=== PATIENT | female | born 1975 | race Hispanic/Latino ===

== ENCOUNTER → 2018-05-25 | Outpatient (CLI) | payer OTHER ==
[~2018-05-25] MED LIST: ATORVASTATIN CA10 MG PO; CEFTIN500 MG PO; DIFLUCAN100 MG PO; DITROPAN XL10 MG PO; FERREX 150 FOR1 EACH PO; FLUCONAZOLE100 MG PO; GLIMEPIRIDE1 MG PO; GLIMEPIRIDE2 MG PO; LISINOPRIL10 MG PO; METFORMIN HCL1000 MG PO; METFORMIN HCL500 MG PO; METFORMIN HCL850 MG PO; ULTRACET TABLE1 EACH PO
--- NOTE | 2018-05-25 17:43 | Diagnostic Imaging Report ---
EXAM: Abdomen 2 Views INDICATION: ^[id number] ^1335 ^CALCULUS OF KIDNEY COMPARISON: 01/29/2018 FINDINGS: Limited by body habitus. Nonobstructive bowel gas pattern. No signs of pneumoperitoneum. Not significantly changed right renal midpole calculus. Stable right nephroureteral stent in place. Subcentimeter pelvic calcification, closely abutting the distal right nephroureteral stent, unchanged. No acute osseous abnormality. IMPRESSION: No significant interval change from KUB dated 01/29/2018. Signed by: Dr. Cesar Mcdermott MD on 05/25/2018 5:40 PM
== END ==
LOC: RAD 12:51
PROVIDERS: ATTEND Urology
DX: N20.0 Calculus of kidney (principal)
CPT/HCPCS: 74018

== ENCOUNTER → 2018-06-07 | Day surgery (SDC) | payer OTHER ==
[2018-06-05 17:16] LABS: BASOPHILS % 0.4 % (0.0-1.0); EOSINOPHILS # (AUTO) 0.4 (0.0-0.4); EOSINOPHILS % 4.4 % (0.0-6.0); HEMATOCRIT 38.2 % (34.2-44.1); HEMOGLOBIN 11.6 g/dL (12.0-16.0); LYMPHOCYTES # (AUTO) 2.2 (1.0-3.2); LYMPHOCYTES % 23.5 % (18.0-39.1); MEAN CORPUSCULAR HEMOGLOBIN 23.6 pg (28-32); MEAN CORPUSCULAR HGB CONC 30.4 g/dL (31-35); MEAN CORPUSCULAR VOLUME 77.6 fL (81-99); MONOCYTES # (AUTO) 0.7 (0.2-0.8); MONOCYTES % 7.2 % (4.4-11.3); NEUTROPHILS # (AUTO) 6.1 (2.1-6.9); NEUTROPHILS % 64.3 % (38.7-80.0); PLATELET COUNT 250 x10e3/uL (140-360); RED BLOOD COUNT 4.92 x10e6/uL (3.6-5.1); RED CELL DISTRIBUTION WIDTH 19.8 % (11.7-14.4)
[~2018-06-07] MED LIST changes: +CEFAZOLIN SOD 1 GM/D5W 50ML 50 ML IV ONE; +CLINDAMYCIN 300MG 50 ML IV ONE; +DEXAMETHASONE SOD PHOS INJ 4 MG/ML VIAL ONE; +FARXIGA; +FENTANYL CITRATE/PF 100MCG/2 ML INJ ONE; +IOPAMIDOL 610MG/1ML 300 MG/ML VIAL IV ONE; +LIDOCAINE HCL 2% LOCAL INJ 5 ML SDV VIAL INJ ONE; +MIDAZOLAM HCL 2 MG/2 ML VIAL ONE; +ONDANSETRON HCL INJ 2MG/ML 2ML 2 MG/ML VIAL ONE; +PROPOFOL IV EMULSION 10 MG/ML 20 ML VIAL ONE; +SEVOFLURANE INHAL SOLN 250 ML PEN BTL ONE; +TRADJENTA5 MG
--- OUTSIDE RECORDS SUMMARY | 2018-06-07 07:49 | XMS REPORT ---
Author Author [facility] Address Unknown Phone Unavailable Care Team Providers Care Court Deputy Name Role Phone DANIEL MO Unavailable Unavailable Problems This patient has no known problems. Allergies, Adverse Reactions, Alerts This patient has no known allergies or adverse reactions. Medications This patient has no known medications. Results Test Description Test Time Test Comments Text Results Atomic Results Result Comments ABDOMEN-1VIEW ([facility]) 2018-05-25 17:37:00 [place] [address] Patient Name: FAUSTO ANGEL MR #: [id number] : 1975 Age/Sex: 43/F Req #: [id number] Adm Physician: Ordered by: DANIEL MO MD Report #: [id number] Location: [facility] Room/Bed: Procedure: [id number] DX/ABDOMEN-1VIEW (KU) Exam Date: 05/25/18 Exam Time: 1335 REPORT STATUS: Signed EXAM: Abdomen 2 Views INDICATION: [id number] CALCULUS OF KIDNEY COMPARISON: 01/29/2018 FINDINGS: Limited by body habitus. Nonobstructive bowel gas pattern. No signs of pneumoperitoneum. Not significantly changed right renal midpole calculus. Stable right nephroureteral stent in place. Subcentimeter pelvic calcification, closely abutting the distal right nephroureteral stent, unchanged. No acute osseous abnormality. IMPRESSION: No significant interval change from KUB dated 01/29/2018. Signed by: Dr. Cesar Mcdermott MD on 05/25/2018 5:40 PM Dictated By: CESAR MCDERMOTT MD 39 Transcribed By: GRAEME on 05/25/181739 COPY TO: DANIEL MO MD ABDOMEN-1VIEW (KUB) 2018-01-29 17:34:00 [place] [address] Patient Name: FAUSTO ANGEL MR #: [id number] : 1975 Age/Sex: 42/F Req #: [id number] Adm Physician: Ordered by: DANIEL MO MD Report #: [id number] Location: [facility] Room/Bed: Procedure: [id number] DX/ABDOMEN-1VIEW (KU) Exam Date: 01/29/18 Exam Time: 1657 REPORT STATUS: Signed ABDOMEN-1VIEW (KU) - 3 views HISTORY: Pain. History of a stent. COMPARISON: CT dated 07/10/2015 FINDINGS: Limited by body habitus. Nonobstructive bowel gas pattern. No signs of pneumoperitoneum. Questionable faint calcification overlying right renal midpole measuring 1.1 cm. There is a right nephroureteral stent in place. The proximal tip is either within extra renal pelvis or proximal right ureter. The distal tip overlies the expected location of bladder. Pelvic calcification, closely abutting the distal right nephroureteral stent. No acute osseous abnormality. IMPRESSION: Right nephroureteral stent in place. The proximal tip is either within extrarenal pelvis or proximal right ureter. The distal tip overlies the expected location of bladder. Questionable 1.1 cm right renal calculus. Pelvic calcification, closely abutting the distal right nephroureteral stent, could represent a phlebolith or distal right ureteral calculus. If clinically indicated, renal stone protocol CT can be obtained for better evaluation. Signed by: Dr. Cesar Mcdermott MD on 01/29/2018 5:41 PM Dictated By: CESAR MCDERMOTT MD 40 Tra nscribed By: GRAEME on 01/29/181740 COPY TO: DANIEL MO MD
[2018-06-07 11:35] VITALS: BP 120/65
--- NOTE | 2018-06-07 13:30 | Operative Report ---
DATE OF PROCEDURE: June 07, 2018 SERVICE: Urology. PREOPERATIVE DIAGNOSES 1. Right hydronephrosis. 2. Bladder stone. 3. Stent on the right side. 4. History of right nephrolithiasis. 5. Urinary tract infections in the past. POSTOPERATIVE DIAGNOSES 1. Right hydronephrosis. 2. Bladder stone. 3. Stent on the right side. 4. History of right nephrolithiasis. 5. Urinary tract infections in the past. OPERATIONS PERFORMED: 1. Cystoscopy and laser fragmentation of bladder stone about 2 cm in size. 1. Left retrograde pyelograms under fluoroscopic control. This was done not related to the other side, for further evaluation of the urinary tract infection. 2. Removal of double-J stent from the right side. 3. Right retrograde pyelograms under fluoroscopic control. 4. Right ureteroscopy. 5. Placement of double-J stent 6-Portuguese 24-cm-long to the right side. 6. Interpretation of x-ray. Radiologist not present. 7. Supervision of fluoroscopy. Radiologist not present. DIRECTOR OF HEALTH EDUCATION: None. ANESTHESIA: General. CLINICAL INDICATION NOTE: This is a 43-year-old patient that had stones in the right side. She has a stent in place. She was brought for reassessment of both sides and possible fragmentation of a stone in the kidney found. Procedure was discussed with the patient. Potential benefits and complications discussed, explained and accepted. DESCRIPTION OF PROCEDURE AND FINDINGS: After a proper level of anesthesia was achieved, the patient was placed in lithotomy position, prepped and draped in sterile fashion. Urethra inspected, is unremarkable. The outlet is normal. Bladder mucosa demonstrates some inflammatory changes to the stones. Some of them were attached to the stent. They were fragmented with a laser, and the fragments were removed. Following this, open-end catheter was inserted to the left side and retrograde pyelogram demonstrating a normal left collecting system. No hydronephrosis, no stones. Following this, the open-end catheter was inserted by the present stent on the right side. The stent was then removed and retrograde pyelogram demonstrating some dilation and hydronephrosis on the right side. Question of UPJ obstruction as well. Following this, a guidewire was passed up and a flexible ureteroscopy was done. No stones were identified along the ureter. UPJ junction was somewhat narrow. The pelvis was then examined. It was dilated and had some cloudy material, but no definitive stone could be identified. The wire was kept in place, and a 6-Portuguese 24-cm-long double J-stent was properly positioned in the right side. This was verified by x-ray and endoscopy. Bladder was then irrigated, and the patient was transferred in satisfactory condition to the recovery room. Job#: [id number]
== END | disposition home or self-care (01) ==
LOC: OR 07:47
PROVIDERS: ATTEND Urology
DX: N13.30 Unspecified hydronephrosis (principal); N21.0 Calculus in bladder; Z46.6 Encounter for fitting and adjustment of urinary device; Z87.442 Personal history of urinary calculi; Z87.440 Personal history of urinary (tract) infections; E11.9 Type 2 diabetes mellitus without complications; I10 Essential (primary) hypertension; R49.0 Dysphonia; E66.01 Morbid (severe) obesity due to excess calories; Z01.810 Encounter for preprocedural cardiovascular examination; Z01.812 Encounter for preprocedural laboratory examination; Z79.84 Long term (current) use of oral hypoglycemic drugs
CPT/HCPCS: 36415 ×2; 52317; 52332; 52351; 74420; 81025; 82948; 85025; 88300; 93005; C2617; J0690; J1100; J2001; J2250; J2405; J2704; Q9967

== ENCOUNTER → 2019-02-11 | Outpatient (CLI) | payer OTHER ==
[~2019-02-11] MED LIST changes: -CEFAZOLIN SOD 1 GM/D5W 50ML 50 ML IV ONE; -CLINDAMYCIN 300MG 50 ML IV ONE; -DEXAMETHASONE SOD PHOS INJ 4 MG/ML VIAL ONE; -FENTANYL CITRATE/PF 100MCG/2 ML INJ ONE; -IOPAMIDOL 610MG/1ML 300 MG/ML VIAL IV ONE; -LIDOCAINE HCL 2% LOCAL INJ 5 ML SDV VIAL INJ ONE; -MIDAZOLAM HCL 2 MG/2 ML VIAL ONE; -ONDANSETRON HCL INJ 2MG/ML 2ML 2 MG/ML VIAL ONE; -PROPOFOL IV EMULSION 10 MG/ML 20 ML VIAL ONE; -SEVOFLURANE INHAL SOLN 250 ML PEN BTL ONE
--- NOTE | 2019-02-11 16:56 | Diagnostic Imaging Report ---
EXAM: Renal Ultrasound INDICATION: Hydronephrosis COMPARISON: CT abdomen pelvis of 06/29/2015 TECHNIQUE: Transverse and longitudinal images of the kidneys and bladder were obtained. FINDINGS: Image quality is degraded by patient body habitus. Right Kidney: Length: 11.2 cm Appearance: Normal echogenicity. Collecting system: No hydronephrosis Stones: None Cyst/Mass: None Left Kidney: Length: 11.4 cm Appearance: Normal echogenicity. Collecting system: No hydronephrosis Stones: None Cyst/Mass: None Bladder: No mass or calculi. Bilateral ureteral jets seen. Prevoid volume estimate of 112.1 cc. IMPRESSION: No renal calculi or hydronephrosis. Signed by: Jose Knight MD on 02/11/2019 4:52 PM
--- NOTE | 2019-02-11 17:21 | Diagnostic Imaging Report ---
Exam: KUB - 2 views Indication: Renal calculi, back pain Comparison: KUB of 05/25/2018, renal ultrasound of earlier the same day Findings: No radiographically apparent renal calculi. Nonobstructive bowel gas pattern. The osseous structures appear unremarkable. No free air. Phleboliths within the pelvis. Impression: No radiographically apparent renal calculi. Signed by: Jose Knight MD on 02/11/2019 5:17 PM
== END ==
LOC: US 16:05
PROVIDERS: ATTEND Urology
DX: N20.0 Calculus of kidney (principal); N13.30 Unspecified hydronephrosis
CPT/HCPCS: 74018; 76770

== ENCOUNTER 2020-02-07 11:53 | Inpatient (IN) | payer OTHER ==
[~2020-02-07] VITALS: Ht 162.6 cm; Wt 144.2 kg
[2020-02-07] MEDS ORDERED: AZITHROMYCIN 500MG/NS 250 ML 250 ML IV STA (12:04)
[2020-02-07] MEDS ORDERED: CEFTRIAXONE SOD 1 GM/NS 50 ML 50 ML IV ONE (12:15)
[2020-02-07 12:20] LABS: BASOPHILS % 0.1 % (0.0-1.0); EOSINOPHILS # (AUTO) 0.1 (0.0-0.4); EOSINOPHILS % 1.7 % (0.0-6.0); HEMATOCRIT 39.3 % (34.2-44.1); HEMOGLOBIN 12.2 g/dL (12.0-16.0); LYMPHOCYTES # (AUTO) 1.7 (1.0-3.2); LYMPHOCYTES % 23.5 % (18.0-39.1); MEAN CORPUSCULAR VOLUME 86.9 fL (81-99); MONOCYTES # (AUTO) 0.6 (0.2-0.8); MONOCYTES % 7.8 % (4.4-11.3); NEUTROPHILS # (AUTO) 4.7 (2.1-6.9); NEUTROPHILS % 66.3 % (38.7-80.0); PLATELET COUNT 201 x10e3/uL (140-360); RED BLOOD COUNT 4.52 x10e6/uL (3.6-5.1); RED CELL DISTRIBUTION WIDTH 16.5 % (11.7-14.4)
[2020-02-07 12:37] LABS: ALANINE AMINOTRANSFERASE 28 IU/L (0-55); ALBUMIN/GLOBULIN RATIO 1.2 (0.8-2.0); ALKALINE PHOSPHATASE 108 IU/L (40-150); ANION GAP 14.6 mmol/L (8-16); BLOOD UREA NITROGEN 7 mg/dL (7-26); BUN/CREATININE RATIO 9 (6-25); CALCIUM 8.4 mg/dL (8.4-10.2); CARBON DIOXIDE 26 mmol/L (22-29); CHLORIDE 100 mmol/L (98-107); CREATINE KINASE 201 IU/L (29-168); CREATININE, SERUM 0.76 mg/dL (0.57-1.11); EST GLOMERULAR FILTRATION RATE > 60 ML/MIN (60-); GLUCOSE 179 mg/dL (74-118); POTASSIUM 3.6 mmol/L (3.5-5.1); SODIUM 137 mmol/L (136-145)
--- OUTSIDE RECORDS SUMMARY | 2020-02-07 12:55 | XMS REPORT | Continuity of Care Document ---
Author Author [facility] t Organization [facility] Address [address] [place] [address] Dr. [address]. [address] [place] [address] Phone Unavailable Care Team Providers Care Movie Writer Name Role Phone DANIEL MO Atttyson Unavailable Problems This patient has no known problems. Allergies, Adverse Reactions, Alerts This patient has no known allergies or adverse reactions. Medications This patient has no known medications. Procedures This patient has no known procedures. Results Test Description Test Time Test Comments Results Result Comments Source ABDOMEN-1VIEW ([facility]U) 2019-02-11 17:16:00 [place] [address] Patient Name: FAUSTO ANGEL MR #: [id number] : 1975 Age/Sex: 43/F Req #: [id number] Adm Physician: Ordered by: DANIEL MO MD Report #: [id number] Location: Room/Bed: Procedure: [id number] DX/ABDOMEN-1VIEW (KUB) Exam Date: 02/11/19 Exam Time: 1703 REPORT STATUS: Signed Exam: KUB - 2 views Indication: Renal calculi, back pain Comparison: KUB of 05/25/2018, renal ultrasound of earlier the same day Findings: No radiographically apparent renal calculi. Nonobstructive bowel gas pattern. The osseous structures appear unremarkable. No free air. Phleboliths within the pelvis. Impression: No radiographically apparent renal calculi. Signed by: Gabriela Knight MD on 02/11/2019 5:17 PM Dictated By: GABRIELA KNIGHT MD 16 Transcribed By: GRAEME on 02/11/191716 COPY TO: DANIEL MO MD RENAL RETROPERITONEAL COMP 2019-02-11 16:51:00 [place] [address] Patient Name: FAUSTO ANGEL MR #: [id number] : 1975 Age/Sex: 43/F Req #: [id number] Adm Physician: Ordered by: DANIEL MO MD Report #: [id number] Location: US Room/Bed: Procedure: [id number] US/US RENAL RETROPERITONEAL COMP Exam Date: 02/11/19 Exam Time: 1620 REPORT STATUS: Signed EXAM: Renal Ultrasound INDICATION: Hydronephrosis COMPARISON: CT abdomen pelvis of 06/29/2015 TECHNIQUE: Transverse and longitudinal images of the kidneys and bladder were obtained. FINDINGS: Image quality is degraded by patient body habitus. Right Kidney: Length: 11.2 cm Appearance: Normal echogenicity. Collecting system: No hydronephrosis Stones: None Cyst/Mass: None Left Kidney: Length: 11.4 cm Appearance: Normal echogenicity. Collecting system: No hydronephrosis Stones: None Cyst/Mass: None Bladder: No mass or calculi. Bilateral ureteral jets seen. Prevoid volume estimate of 112.1 cc. IMPRESSION: No renal calculi or hydronephrosis. Signed by: Gabriela Knight MD on 02/11/2019 4:52 PM Dictated By: GABRIELA KNIGHT MD 51 Transcribed By: GRAEME on 02/11/191651 COPY TO: DANIEL MO MD ABDOMEN-1VIEW ([facility]UB) 2018-05-25 17:37:00 [place] [address] Patient Name: FAUSTO ANGEL MR #: [id number] : 1975 Age/Sex: 43/F Req #: [id number] Adm Physician: Ordered by: DANIEL MO MD Report #: [id number] Location: [facility] Room/Bed: Procedure: [id number] DX/ABDOMEN-1VIEW (KU) Exam Date: 05/25/18 Exam Time: 1335 REPORT STATUS: Signed EXAM: Abdomen 2 Views INDICATION: [id number] CALCULUS OF KIDNEY COMPARISON: 01/29/2018 FINDINGS: Limited by body habitus. Nonobstructive bowel gas pattern. No signs of pneumoperitoneum. Not significantly changed right renal midpole calculus. Stable right nephroureteral stent in place. Subcentimeter pelvic calcification, closely abutting the distal right nephroureteral stent, unchanged. No acute osseous abnormality. IMPRESSION: No significant interval change from KUB dated 01/29/2018. Signed by: Dr. Cesar Baca MD on 05/25/2018 5:40 PM Dictated By: CESAR BACA MD 39 Transcribed By: GRAEME on 05/25/181739 COPY TO: DANIEL MO MD ABDOMEN-1VIEW (KUB) 2018-01-29 17:34:00 [place] [address] Patient Name: FAUSTO ANGEL MR #: [id number] : 1975 Age/Sex: 42/F Req #: [id number] Adm Physician: Ordered by: DANIEL MO MD Report #: [id number] Location: [facility] Room/Bed: Procedure: [id number] DX/ABDOMEN-1VIEW (KUB) Exam Date: 01/29/18 Exam Time: 1657 REPORT STATUS: Signed ABDOMEN-1VIEW (KUB) - 3 views HISTORY: Pain. History of [...] for better evaluation. Signed by: Dr. Cesar Baca MD on 01/29/2018 5:41 PM Dictated By: CESAR BACA MD 40 Tra nscribed By: GRAEME on 01/29/181740 COPY TO: DANIEL MO MD
--- NOTE | 2020-02-07 13:00 | Emergency Department Note ---
History of Present Illnes History of Present Illness Chief Complaint: COVID PUI History of Present Illness This is a 44 year old female arrives to the ED with complaints of cough fever chills. Patient's son test positive for Covid 19. . Chief Complaint Comment patient c/o shortness of breath and fever, pt states that she was tested on 01/25 but tested negative but symptoms did not start until the next day, productive cough and shortness of breath started after her last covid test, pt states that she has had a fever since 01/26 and her temperature will spike up if she does not take tylenol every 6-8 hrs, pt states that she has been taking tylenol since 01/26, last taken was 0630, pt appears to be short of breath when ambulating and needed to be placed on oxygen via nasal cannula upon arrival to the room, current O2 sat is 100% on 2L Historian: Patient Arrival Mode: Car Radiation: Reports non-radiation Severity: mild Duration (how long): day(s) Progression: worsening ( ) Chronicity: new Past Medical/Family History Physician Review I have reviewed the patient's past medical and family history. Any updates have been documented here. Past Medical History Recent Fever: Yes Clinical Suspicion of Infectio: No New/Unexplained Change in Ment: No Past Medical History: Hypertension, Diabetes, Hyperlipedemia Other Medical History: KIDNEY STONES Past Surgical History: Cholecysctectomy Other Surgery: LITHOTRIPSY Social History Smoking Cessation: Never Smoker Other Last Tetanus: NA Review of Systems Review of Systems Constitutional: Reports as per HPI, Reports fever, Reports malaise, Reports weakness EENTM: Reports no symptoms Cardiovascular: Reports no symptoms Respiratory: Reports as per HPI, Reports cough Gastrointestinal: Reports no symptoms Genitourinary: Reports no symptoms Musculoskeletal: Reports no symptoms Integumentary: Reports no symptoms Neurological: Reports no symptoms Psychological: Reports no symptoms Endocrine: Reports no symptoms Hematological/Lymphatic: Reports no symptoms Physical Exam Related Data Allergies: Coded Allergies: No Known Allergies (Unverified , 11/12/14) Triage Vital Signs Vital Signs Date Time Temp Pulse Resp B/P (MAP) Pulse Ox O2 Delivery O2 Flow Rate FiO2 02/07/20 12:00 101 24 162/74 99 Nasal Cannula 2.0 Vital signs reviewed: Yes Physical Exam CONSTITUTIONAL Constitutional: Present well-developed, Present well-nourished, Present morbidly obese HENT HENT: Present normocephalic, Present atraumatic, Present oropharynx clear/moist, Present nose normal HENT L/R: Present left ext ear normal, Present right ext ear normal EYES Eyes: Reports PERRL, Reports conjunctivae normal NECK Neck: Present ROM normal PULMONARY Pulmonary: Present effort normal, Present breath sounds normal CARDIOVASCULAR Cardiovascular: Present regular rhythm, Present heart sounds normal, Present capillary refill normal, Present normal rate GASTROINTESTINAL Abdominal: Present soft, Present nontender, Present bowel sounds normal GENITOURINARY Genitourinary: Present exam deferred SKIN Skin: Present warm, Present dry MUSCULOSKELETAL Musculoskeletal: Present ROM normal NEUROLOGICAL Neurological: Present alert, Present oriented x 3, Present no gross motor or sensory deficits PSYCHOLOGICAL Psychological: Present mood/affect normal, Present judgement normal Results Laboratory Laboratory Laboratory Tests Test 02/07/20 12:12 02/07/20 12:10 Bedside Glucose 187 mg/dL (70-120) Assessment & Plan Medical Decision Making MDM Clinical Impression and Disposition Plan My clinical impression includes: Covid 19 pneumonia No diagnosis found. And plan is admit for: -Further monitoring and evaluation is medically necessary -Failure to respond to outpatient treatment -Changes in pt's condition require medical attention -High risk for adverse event impacting life/organs/systems -Impossible to complete diagnostic studies as an outpatient -Signs/symptoms could lead to deterioration of patient -Treatment plan will require frequent clinical modifications -Treatment requires inpatient setting All clinical impressions and diagnoses provided are preliminary ED determinations subject to the inherent limitations of an emergent non-scheduled evaluation and possible lack of comprehensive previous records. All patient care including history taking, review of systems, physical exam, nursing notes review, medical decision making, clinical course management in the emergency department, clinical impression, disposition and plan formulation was performed on the date of service. This note was created using a voice-recognition transcribing system. Incorrect words or phrases may have been missed during proofreading. Please interpret accordingly. Assessment & Plan Final Impression: (1) COVID-19 Depart Disposition: ADMITTED Last Vital Signs Date Time Temp Pulse Resp B/P (MAP) Pulse Ox O2 Delivery O2 Flow Rate FiO2 02/07/20 12:00 101 24 162/74 99 Nasal Cannula 2.0 Home Meds Reported Medications Linagliptin (TRADJENTA) 5 Mg Tablet 06/05/18 [Farxiga] No Conflict Check 06/05/18 Metformin Hcl (METFORMIN HCL) 1,000 Mg Tablet, 1000 MG PO BID 01/02/17 Atorvastatin Calcium (ATORVASTATIN CALCIUM) 10 Mg Tablet, 10 MG PO HS, TAB 11/12/14 Lisinopril (LISINOPRIL) 10 Mg Tablet, 10 MG PO HS, TAB 11/12/14 Medications in the ED Ceftriaxone Sodium 50 ml @ 100 mls/hr ONCE ONCE IV ; Start 02/07/20 at 12:15; Stop 02/07/20 at 12:44 Azithromycin 250 ml @ 200 mls/hr NOW STAT IV ; Start 02/07/20 at 12:04; Stop 02/07/20 at 13:18 MARIA SERRATO DO Feb 07, 2020 13:00
--- OUTSIDE RECORDS SUMMARY | 2020-02-07 13:03 | XMS REPORT | Continuity of Care Document ---
Author Author [facility] t Organization [facility] Address [address] [place] [address] Dr. Smith. [address] [place] [address] Phone Unavailable Care Team Providers Care Physician Ophthalmologist Name Role Phone DANIEL MO Atttyson Unavailable Problems This patient has no known problems. Allergies, Adverse Reactions, Alerts This patient has no known allergies or adverse reactions. Medications This patient has no known medications. Procedures This patient has no known procedures. Results Test Description Test Time Test Comments Results Result Comments Source ABDOMEN-1VIEW ([facility]) 2019-02-11 17:16:00 [place] [address] Patient Name: FAUSTO ANGEL MR #: [id number] : 1975 Age/Sex: 43/F Req #: [id number] Adm Physician: Ordered by: DANIEL MO MD Report #: [id number] Location: Room/Bed: Procedure: [id number] DX/ABDOMEN-1VIEW (KUB) Exam Date: 02/11/19 Exam Time: [...] MO MD RENAL RETROPERITONEAL COMP 2019-02-11 16:51:00 [place] [address] Patient Name: FAUSTO ANGEL MR #: [id number] : 1975 Age/Sex: 43/F Req #: [id number] Adm Physician: Ordered by: DANIEL MO MD Report #: [id number] Location: US Room/Bed: Procedure: [id number] US/US RENAL RETROPERITONEAL COMP Exam Date: 02/11/19 [...] DANIEL MO MD ABDOMEN-1VIEW ([facility]) 2018-05-25 17:37:00 [place] [address] Patient Name: FAUSTO ANGEL MR #: [id number] : 1975 Age/Sex: 43/F Req #: [id number] Adm Physician: Ordered by: DANIEL MO MD Report #: [id number] Location: [facility] Room/Bed: Procedure: [id number] DX/ABDOMEN-1VIEW (KU) Exam Date: 05/25/18 Exam Time: 1335 REPORT STATUS: Signed EXAM: Abdomen 2 Views INDICATION: [id number] CALCULUS OF KIDNEY COMPARISON: 01/29/2018 FINDINGS: [...] DANIEL MO MD ABDOMEN-1VIEW (KUB) 2018-01-29 17:34:00 [place] [address] Patient Name: FAUSTO ANGEL MR #: [id number] : 1975 Age/Sex: 42/F Req #: [id number] Adm Physician: Ordered by: DANIEL MO MD Report #: [id number] Location: [facility] Room/Bed: Procedure: [id number] DX/ABDOMEN-1VIEW (KUB) Exam Date: 01/29/18 Exam Time: [...]
--- NOTE | 2020-02-07 13:12 | Diagnostic Imaging Report ---
Examination: Single AP view of the chest. COMPARISON: None. INDICATION: COVID positive, hypoxemia DISCUSSION: Lung volumes are low. There are patchy bilateral interstitial and alveolar opacities. No pleural effusion or pneumothorax. Cardiomediastinal contour and pulmonary vasculature are within normal limits when accounting for AP technique. No acute osseous abnormalities. IMPRESSION: Multifocal interstitial and alveolar opacities in keeping with viral/atypical pneumonia. Signed by: Dr. Rodney Guadarrama M.D. on 02/07/2020 1:09 PM
[2020-02-07] MEDS ORDERED: HYDROCODONE/CHLORPHENIRAMINE 5 ML LIQCR PO PRN (15:15)
[2020-02-07] MEDS ORDERED: ONDANSETRON HCL INJ 2MG/ML 2ML 2 MG/ML VIAL IV PRN (15:15)
[2020-02-07] MEDS ORDERED: ACETAMINOPHEN 325 MG TAB PO PRN (15:15)
[2020-02-07] MEDS ORDERED: DEXAMETHASONE SOD PHOS 10 MG/1 ML VIAL IV SCH (15:15)
[2020-02-07] MEDS ORDERED: CEFTRIAXONE SOD 2 GM/NS 100 ML 100 ML IV SCH (15:15)
[2020-02-07] MEDS ORDERED: DEXTROSE 50% SYRINGE 50 ML IV PRN (15:15)
[2020-02-07 15:45] VITALS: BP 131/79
--- NOTE | 2020-02-07 15:46 | Consultation ---
DATE OF CONSULTATION: Pulmonary Critical Care Consultation CHIEF COMPLAINT: Cough, fevers, and dyspnea. HISTORY OF PRESENT ILLNESS: The patient is a 44-year-old woman. She has a history of type 2 diabetes and hypertension. Her son had COVID-19. She now complains of malaise, fatigue and fevers for about 12 days. She also noticed some dry cough as well as some mild dyspnea. PAST SURGICAL HISTORY: 1. Status post cholecystectomy. 2. Status post lithotripsy for nephrolithiasis. PAST MEDICAL HISTORY: 1. Diabetes. 2. Hypertension. 3. Nephrolithiasis. 4. No prior history of asthma. 5. No prior cardiac history. ALLERGIES: NO KNOWN DRUG ALLERGIES. SOCIAL HISTORY: The patient quit smoking 12 years ago. The patient is not a drinker. REVIEW OF SYSTEMS: Fevers. No headache. No neck pain. No chest pain. Some dry cough and some dyspnea. There is no abdominal pain. No nausea or vomiting. No leg edema. PHYSICAL EXAMINATION: VITAL SIGNS: The blood pressure is 133/100. Saturation is 99% on 3 L. Pulse is 83. HEENT: Shows no facial swelling or erythema. LYMPHATIC: Shows no submandibular, cervical, or supraclavicular adenopathy. CARDIAC: Reveals regular rate and rhythm with normal S1 and S2. LUNGS: Auscultation of lungs reveals rhonchorous breath sounds bilaterally. There is no wheezing. ABDOMEN: Soft and nontender. There is no rebound or guarding. EXTREMITIES: Shows no leg edema or calf tenderness. There is no cyanosis or clubbing. SKIN: Shows no rashes. NEUROLOGICAL: Shows no focal abnormalities. LABORATORY DATA: The BUN to creatinine ratio is 7 to 0.76. Other electrolytes are within normal limits. The white blood cell count is 7.1, hemoglobin 12.2, and the platelet count is 201. RADIOGRAPHIC DATA: Chest x-ray shows alveolar infiltrates and probable atypical pneumonia. IMPRESSION: 1. Viral pneumonia and COVID 19 infection. 2. Diabetes. 3. Hypertension. PLAN: 1. The patient will receive Zithromax and Rocephin. 2. Lovenox. 3. Dexamethasone. 4. Monitor and control blood sugars. 5. The patient is not a candidate for remdesivir because of the length of her illness. MD ANGELINA Warner/SHILPIL /[id number]
--- NOTE | 2020-02-07 16:00 | NUR ---
PATIENT RECEIVED FROM ER PER STRETCHER. ALERT AND VERBALLY RESPONSIVE, DENIED PAIN AT THIS TIME. SKIN WARM AND DRY TO TOUCH, RESPIRATION EVEN AND UNLABORED WITH SOME COUGH NOTED WITH EXERTION; O2 IN PLACE VIA N/L . ABDOMEN SOFT, LARGE, AND ROUND WITH BS + X [address]. PATIENT ORIENTED TO SURROUNDINGS. BED IN LOWER POSITION, CALL LIGHT AT REACH, INSTRUCTED TO CALL FOR ASSISTANCE NEEDED. Addendum: 02/07/20 at 1638 by Carmelo Anderson RN TELEMETRY [address]
[2020-02-07] MEDS ORDERED: IOPAMIDOL 370 MG/ML 200 ML INFUS..BTL INJ ONE (16:08)
[2020-02-07] MEDS ORDERED: SODIUM CHLORIDE 0.9% 50ML 50 ML ONE (16:08)
[2020-02-07 16:24] VITALS: BP 131/79
[2020-02-07] MEDS: INSULIN REGULAR, HUMAN 100 UNIT/1 ML 3ML VIAL SQ SCH ×2 (16:30→21:00)
[2020-02-07 16:31] VITALS: BP 131/79
--- NOTE | 2020-02-07 16:35 | NUR ---
PATINT OFF UNIT TO RADIOLOGY.
--- NOTE | 2020-02-07 17:05 | NUR ---
PATIENT BACK TO UNIT FROM RADIOLOGY. OUT OF BED TO CHAIR EATING DINNER, NO DISTRESS NOTED. CALL LIGHT AT REACH.
--- NOTE | 2020-02-07 17:17 | Diagnostic Imaging Report ---
EXAM: CT Chest WITH contrast- Pulmonary Embolism Protocol INDICATION: Fever, cough, shortness of breath COMPARISON: Chest radiograph of earlier the same day TECHNIQUE: Chest was scanned utilizing a multidetector helical scanner from the lung apex through the level of the diaphragm after administration of IV contrast. Thin section reconstructions were obtained with special concentration on the pulmonary arteries. Coronal and sagittal reformations were obtained. Pulmonary embolism protocol was performed. IV CONTRAST: 100 cc of Isovue 370 RADIATION DOSE: Total DLP: 494 mGy*cm Dose modulation, iterative reconstruction, and/or weight based adjustment of the mA/kV was utilized to reduce the radiation dose to as low as reasonably achievable. COMPLICATIONS: None FINDINGS: LINES/ TUBES: None. PULMONARY ARTERIES: No filling defect is identified within the pulmonary arteries to the segmental level. The subsegmental pulmonary arteries are not well opacified. Main pulmonary artery measures 3.1 cm in diameter. No right heart strain. LUNGS AND AIRWAYS: The central airways are patent. Multifocal bilateral groundglass and consolidative opacities throughout all lobes of both lungs PLEURA: The pleural spaces are clear. HEART AND MEDIASTINUM: 1 cm left lower lobe hypodense thyroid nodule. Scattered prominent mediastinal lymph nodes not meeting size criteria for lymphadenopathy. No supraclavicular, axillary, hilar, or internal mammary lymphadenopathy. The heart is nonenlarged. No pericardial effusion. UPPER ABDOMEN: No acute findings in the upper abdomen. BONES: No acute osseous injury. No suspicious lytic or blastic lesions. SOFT TISSUES: Unremarkable. IMPRESSION: No pulmonary embolism. Multifocal bilateral groundglass and consolidative opacities consistent with multifocal viral/atypical pneumonia. Signed by: Jose Knight MD on 02/07/2020 5:14 PM
[2020-02-07] MEDS: DEXAMETHASONE SOD PHOS INJ 4 MG/ML VIAL IV SCH (17:34)
--- NOTE | 2020-02-07 18:37 | Consultation ---
DATE OF CONSULTATION: REASON FOR CONSULTATION: COVID-19 pneumonia. HISTORY OF PRESENT ILLNESS: This patient, who is a very pleasant, 44-year-old female, history of obesity, diabetes mellitus, and hypertension, comes in with 2 weeks history of shortness of breath, getting progressively worse in the last 4 days with cough and fever. The patient comes into the emergency room. She is currently on 2 L. I am asked to see her. She was sent here because she was positive for COVID as an outpatient. LABORATORY DATA: White count 7.1 and hemoglobin 12. Sodium 137, potassium 3.6, and creatinine 0.76. Liver enzyme within normal limit. IMPRESSION: Respiratory failure, COVID-19, concerned superimposed bacterial pneumonia. We will put her on Rocephin 2 g daily and azithromycin 500 mg daily. Rocephin for 5 days and azithromycin for 3 days. Dexamethasone 6 mg daily for 10 days and Lovenox 40 subcutaneous q.12 hours. We will put her on isolation. Further recommendations to follow. MD ISABEL Sumner/MODL /[id number]
--- NOTE | 2020-02-07 19:23 | NUR ---
Patient received sitting up in bed. AAO x 4. Patient had no complaints of pain. Respirations even and non-labored on 2L NC. Fall precautions implemented. Patient instructed to call for assistance when needed. Call light within reach.
[2020-02-07 19:28] VITALS: BP 165/88
[2020-02-07 21:00] VITALS: BP 165/88
[2020-02-07] MEDS ORDERED: ZOLPIDEM TARTRATE 5 MG TAB PO PRN (21:00)
[2020-02-07] MEDS ORDERED: ENOXAPARIN SOD INJ 40 MG/0.4 ML SYR SC SCH (21:00)
--- NOTE | 2020-02-07 21:30 | NUR ---
Blood specimen sent to lab for analysis of cardiac enzymes.
[2020-02-07] MEDS: LISINOPRIL 10 MG TAB PO SCH (21:32)
[2020-02-07] MEDS: ENOXAPARIN SOD INJ 40 MG/0.4 ML SYR SC SCH (21:32)
[2020-02-07] MEDS: ATORVASTATIN 10 MG TAB PO SCH (21:32)
[2020-02-08] VITALS (8 sets, daily range): BP systolic 123–146; BP diastolic 77–81
[2020-02-08 05:48] LABS: BASOPHILS % 0.2 % (0.0-1.0); HEMATOCRIT 38.1 % (34.2-44.1); HEMOGLOBIN 12.1 g/dL (12.0-16.0); LYMPHOCYTES # (AUTO) 0.9 (1.0-3.2); MEAN CORPUSCULAR HGB CONC 31.8 g/dL (31-35); MEAN CORPUSCULAR VOLUME 88.2 fL (81-99); MONOCYTES # (AUTO) 0.2 (0.2-0.8); MONOCYTES % 4.2 % (4.4-11.3); NEUTROPHILS # (AUTO) 4.6 (2.1-6.9); NEUTROPHILS % 80.1 % (38.7-80.0); PLATELET COUNT 206 x10e3/uL (140-360); RED BLOOD COUNT 4.32 x10e6/uL (3.6-5.1); RED CELL DISTRIBUTION WIDTH 16.2 % (11.7-14.4)
[2020-02-08 06:14] LABS: ALANINE AMINOTRANSFERASE 28 IU/L (0-55); ALBUMIN 3.9 g/dL (3.5-5.0); ALBUMIN/GLOBULIN RATIO 1.1 (0.8-2.0); ALKALINE PHOSPHATASE 105 IU/L (40-150); ANION GAP 14.1 mmol/L (8-16); BLOOD UREA NITROGEN 8 mg/dL (7-26); BUN/CREATININE RATIO 12 (6-25); CALCIUM 8.8 mg/dL (8.4-10.2); CARBON DIOXIDE 26 mmol/L (22-29); CHLORIDE 102 mmol/L (98-107); CREATININE, SERUM 0.67 mg/dL (0.57-1.11); EST GLOMERULAR FILTRATION RATE > 60 ML/MIN (60-); GLUCOSE 244 mg/dL (74-118); POTASSIUM 4.1 mmol/L (3.5-5.1); SODIUM 138 mmol/L (136-145)
[2020-02-08] MEDS ORDERED: HYDRALAZINE HCL 20 MG/ML VIAL IV PRN (06:45)
--- NOTE | 2020-02-08 07:00 | NUR ---
Walking rounds done. BSSR given to oncoming nurse regarding patient's status.
--- NOTE | 2020-02-08 07:25 | NUR ---
PATIENT SITTING UP IN BED WATCHING TV, NO DISTRESS NOTED. O2 IN PLACE VIA N/C. BED IN LOWER POSITION, CALL LIGHT AT REACH.
[2020-02-08] MEDS: INSULIN REGULAR, HUMAN 100 UNIT/1 ML 3ML VIAL SQ SCH ×4 (07:30→21:21)
[2020-02-08] MEDS ORDERED: SODIUM CHLORIDE 0.9% 250ML 250 ML ONE (08:23)
--- NOTE | 2020-02-08 09:02 | NUR ---
infectious disease parents note Patient seen and examined chart reviewed PATIENT ON PATIENT IS DOING BETTER OVERALL THERE IS NO NEW PROBLEMS HER BREATHING IS MUCH BETTER. ROS: + fatigue + muscle aches ALL 14 POINT ROS NEG UNLESS OTHERWISE NOTED PHYSICAL EXAMINATION: VITAL SIGNS: per chart HEENT: awake, alert LYMPHATIC: no submandibular, cervical, or supraclavicular adenopathy. CARDIAC: S1, S2 no s3, s4 LUNGS: diminished, slight rhonchi ABDOMEN: Soft, nontender. There is no rebound or guarding. EXTREMITIES: no edema or clubbing SKIN: Shows no rashes. NEUROLOGICAL: Shows no focal abnormalities. LABORATORY DATA: per chart RADIOLOGY: reviewed IMPRESSION: Viral pneumonia COVID 19 T2DM HTN RESPIRATORY FAILURE SEEMS TO BE BETTER CONTINUED PLAN IS ORDERED THERE IS NO NEW COMPLAINTS
--- NOTE | 2020-02-08 09:18 | Progress Note ---
DATE: SUBJECTIVE: The patient feels slightly better. She still has some mild dyspnea, but no fevers. She is not complaining of chest pain. PHYSICAL EXAMINATION: VITAL SIGNS: Blood pressure is 137/80, saturation is 100% on 2 L. HEENT: Shows no facial swelling or erythema. LYMPHATIC: Shows no submandibular, cervical, or supraclavicular adenopathy. CARDIAC: Reveals regular rate and rhythm with normal S1, S2. LUNGS: Auscultation of lungs shows decreased breath sounds at the bases. There is no wheezing. ABDOMEN: Soft, nontender. There is no rebound or guarding. EXTREMITIES: Shows no leg edema or calf tenderness. There is no cyanosis or clubbing. SKIN: Shows no rashes. NEUROLOGICAL: Shows no focal abnormalities. LABORATORY DATA: White blood cell count is 5.7, hemoglobin is 12.1. The platelet count is 206. The BUN to creatinine ratio is normal. The other electrolytes are within normal limits. IMPRESSION: 1. Viral pneumonia and coronavirus disease -19 infection. 2. Diabetes. 3. Hypertension. PLAN: 1. Continue Zithromax and Rocephin. 2. Continue Lovenox. 3. Complete dexamethasone. 4. Continue to monitor control blood sugars. 5. Continue supplemental oxygen. 6. Possible discharge home tomorrow. Malcolm Guzmán MD [facility]/MODL /[id number]
[2020-02-08] MEDS: GUAIFENESIN 600MG/DEXTROMETHORPHAN 30MG TABSR PO SCH ×2 (09:19→17:47)
[2020-02-08] MEDS: ESCITALOPRAM OXALATE 10 MG TAB PO SCH (09:19)
[2020-02-08] MEDS: DEXAMETHASONE SOD PHOS INJ 4 MG/ML VIAL IV SCH (09:19)
[2020-02-08] MEDS: ENOXAPARIN SOD INJ 40 MG/0.4 ML SYR SC SCH ×2 (09:19→21:21)
[2020-02-08] MEDS ORDERED: LORAZEPAM 1 MG TAB PO PRN (09:30)
[2020-02-08] MEDS: AZITHROMYCIN 500MG/NS 250 ML 250 ML IV SCH (10:00)
--- NOTE | 2020-02-08 11:13 | NUR ---
PATIENT ASSISTED TO THE RESTROOM AND BACK TO CHAIR. IV ANTIBIOTIC INFUSING ORDERED. CALL LIGHT AT REACH.
[2020-02-08] MEDS ORDERED: AZITHROMYCIN 500MG/NS 250 ML 250 ML IV SCH (11:30)
[2020-02-08] MEDS: CEFTRIAXONE SOD 1 GM/NS 50 ML 50 ML IV SCH (11:46)
[2020-02-08] MEDS: PIOGLITAZONE HCL 15 MG TAB PO SCH (11:46)
--- NOTE | 2020-02-08 13:49 | NUR ---
INFECTIOUS DISEASE PROGRESS NOTE DR. EDDIE PARISH CHIEF COMPLAINT: Cough & fever REVIEW OF SYSTEMS: +sob, + fatigue ROS NEG ALL 14 POINTS UNLESS OTHERWISE NOTED PHYSICAL EXAMINATION: VITAL SIGNS: per chart HEENT: normocephalic atraumatic LYMPHATIC: Shows no submandibular, cervical, or supraclavicular adenopathy. CARDIAC: S1 and S2, no s3, s4 LUNGS: Rhonchi, diminished ABDOMEN: Soft and nontender, no distension EXTREMITIES: no edema, moves all SKIN: no rashes. no joint swelling NEUROLOGICAL: Shows no focal abnormalities. LABORATORY DATA: per chart RADIOGRAPHIC DATA: reviewed IMPRESSION: 44-year-old woman. She has a history of type 2 diabetes and hypertension. Her son had COVID-19. She now complains of malaise, fatigue and fevers for about 12 days. She also noticed some dry cough as well as some mild dyspnea. 1. PNA 2. COVID 19 infection. 2. T2DM 3. HTN PLAN: IV ABT as ordered Lovenox, Dexamethasone. The patient is not a candidate for remdesivir because of the length of her illness Linette Haney MSN, RATE AND COST ANALYST, AGACNP-BC Eddie Parish M.D
--- NOTE | 2020-02-08 13:52 | NUR ---
INFECTIOUS DISEASE PROGRESS NOTE DR. EDDIE PARISH SUBJECTIVE: improved ROS: + fatigue + muscle aches ALL 14 POINT ROS NEG UNLESS OTHERWISE NOTED PHYSICAL EXAMINATION: VITAL SIGNS: per chart HEENT: awake, alert LYMPHATIC: no submandibular, cervical, or supraclavicular adenopathy. CARDIAC: S1, S2 no s3, s4 LUNGS: diminished, slight rhonchi ABDOMEN: Soft, nontender. There is no rebound or guarding. EXTREMITIES: no edema or clubbing SKIN: Shows no rashes. NEUROLOGICAL: Shows no focal abnormalities. LABORATORY DATA: per chart RADIOLOGY: reviewed IMPRESSION: Viral pneumonia COVID 19 T2DM HTN PLAN: IV ABT as prescribed Lovenox Dexamethasone Oxygen as needed Linette Haney MSN, PLANNING COORDINATOR, AGACNP-BC Eddie Parish M.D.
--- NOTE | 2020-02-08 16:09 | NUR ---
MD IN TO SEE PATIENT, NO NEW ORDER RECEIVED.
[2020-02-08] MEDS: ATORVASTATIN 10 MG TAB PO SCH (21:20)
[2020-02-08] MEDS: LISINOPRIL 10 MG TAB PO SCH (21:21)
[2020-02-09] VITALS (8 sets, daily range): BP systolic 114–145; BP diastolic 51–84
[2020-02-09 04:49] LABS: BASOPHILS % 0.1 % (0.0-1.0); HEMATOCRIT 36.9 % (34.2-44.1); HEMOGLOBIN 11.3 g/dL (12.0-16.0); LYMPHOCYTES # (AUTO) 1.2 (1.0-3.2); LYMPHOCYTES % 13.5 % (18.0-39.1); MEAN CORPUSCULAR HGB CONC 30.6 g/dL (31-35); MEAN CORPUSCULAR VOLUME 88.1 fL (81-99); MONOCYTES # (AUTO) 0.7 (0.2-0.8); MONOCYTES % 7.7 % (4.4-11.3); NEUTROPHILS # (AUTO) 6.6 (2.1-6.9); PLATELET COUNT 239 x10e3/uL (140-360); RED BLOOD COUNT 4.19 x10e6/uL (3.6-5.1); RED CELL DISTRIBUTION WIDTH 15.6 % (11.7-14.4)
[2020-02-09 05:21] LABS: ALANINE AMINOTRANSFERASE 24 IU/L (0-55); ALBUMIN 3.7 g/dL (3.5-5.0); ALBUMIN/GLOBULIN RATIO 1.2 (0.8-2.0); ALKALINE PHOSPHATASE 92 IU/L (40-150); BLOOD UREA NITROGEN 11 mg/dL (7-26); BUN/CREATININE RATIO 16 (6-25); CALCIUM 8.6 mg/dL (8.4-10.2); CARBON DIOXIDE 25 mmol/L (22-29); CHLORIDE 101 mmol/L (98-107); CREATININE, SERUM 0.69 mg/dL (0.57-1.11); EST GLOMERULAR FILTRATION RATE > 60 ML/MIN (60-); GLUCOSE 248 mg/dL (74-118); SODIUM 137 mmol/L (136-145)
[2020-02-09] MEDS: INSULIN REGULAR, HUMAN 100 UNIT/1 ML 3ML VIAL SQ SCH ×4 (07:30→21:55)
--- NOTE | 2020-02-09 07:35 | NUR ---
PATIENT IN BED RESTING WITH EYES CLOSED, NO DISTRESS NOTED. O2 IN PLACE VIA N/C. BED IN LOWER POSITION, CALL LIGHT AT REACH.
[2020-02-09] MEDS: ESCITALOPRAM OXALATE 10 MG TAB PO SCH ×2 (09:00→09:18)
[2020-02-09] MEDS: GUAIFENESIN 600MG/DEXTROMETHORPHAN 30MG TABSR PO SCH ×2 (09:18→17:11)
[2020-02-09] MEDS: PIOGLITAZONE HCL 15 MG TAB PO SCH (09:18)
[2020-02-09] MEDS: ENOXAPARIN SOD INJ 40 MG/0.4 ML SYR SC SCH ×2 (09:18→21:53)
[2020-02-09] MEDS: DEXAMETHASONE SOD PHOS INJ 4 MG/ML VIAL IV SCH (09:18)
[2020-02-09] MEDS: AZITHROMYCIN 500MG/NS 250 ML 250 ML IV SCH (10:00)
--- NOTE | 2020-02-09 11:20 | NUR ---
PATIENT SITTING AT BED SIDE WORKING ON HER COMPUTER, NO COMPLAIN VOICED. CALL LIGHT AT REACH.
[2020-02-09] MEDS: CEFTRIAXONE SOD 1 GM/NS 50 ML 50 ML IV SCH (11:56)
[2020-02-09] MEDS ORDERED: LACTATED RINGER'S 500 ML INJ ONE (13:45)
--- NOTE | 2020-02-09 14:19 | Progress Note ---
DATE: SUBJECTIVE: The patient is feeling fatigued today. The staff walked the patient, she became dyspneic, and her oxygen saturation fell. PHYSICAL EXAMINATION: VITAL SIGNS: Blood pressure is 145/89 and pulse ox is 99%. The pulse is 57. HEENT: Shows no facial swelling or erythema. LYMPHATIC: Shows no submandibular, cervical, supraclavicular adenopathy. CARDIAC: Reveals regular rate and rhythm with normal S1, S2. LUNGS: Auscultation of lungs reveals rhonchorous breath sounds bilaterally. There is no wheezing. ABDOMEN: Soft and nontender. There is no rebound or guarding. EXTREMITIES: Shows no leg edema or calf tenderness. There is no cyanosis or clubbing. SKIN: Shows no rashes. LABORATORY DATA: 8.5 and hemoglobin is 11.3, the platelet count is 239. The BUN to creatinine ratio is 11 to 0.69. Other electrolytes within normal limits. IMPRESSION: 1. Viral pneumonia and COVID-19 infection. 2. Diabetes. 3. Hypertension. PLAN: 1. Complete dexamethasone. 2. Continue Lovenox. 3. Continue supplemental oxygen. 4. Continue to monitor blood sugars. 5. Continue Zithromax and Rocephin. Malcolm Guzmán MD [facility]/MODL /[id number]
--- NOTE | 2020-02-09 14:48 | NUR ---
infectious disease parents note patient seen and examined chart reviewed with the patient towards fatigue but no new complaints. The patient is feeling fatigued today. The staff walked the patient, she became dyspneic, and her oxygen saturation fell. PHYSICAL EXAMINATION: VITAL SIGNS: Blood pressure is 145/89 and pulse ox is 99%. The pulse is 57. HEENT: Shows no facial swelling or erythema. LYMPHATIC: Shows no submandibular, cervical, supraclavicular adenopathy. CARDIAC: Reveals regular rate and rhythm with normal S1, S2. LUNGS: Auscultation of lungs reveals rhonchorous breath sounds bilaterally. There is no wheezing. ABDOMEN: Soft and nontender. There is no rebound or guarding. EXTREMITIES: Shows no leg edema or calf tenderness. There is no cyanosis or clubbing. SKIN: Shows no rashes. LABORATORY DATA: WBC 8.5 and hemoglobin is 11.3, the platelet count is 239. The BUN to creatinine ratio is 11 to 0.69. Other electrolytes within normal limits. IMPRESSION: 1. Viral pneumonia and COVID-19 infection. 2. Diabetes. superimposed bacterial pneumonia continue with antibiotic as ordered continue supportive care as ordered 3. Hypertension.
--- NOTE | 2020-02-09 16:13 | NUR ---
MD IN TPO SEE PATIENT, NEW ORDER RECEIVED.
--- NOTE | 2020-02-09 20:30 | NUR ---
PATIENT SITTING ON SIDE COUCH IN STABLE CONDITION, NO SIGNS OF DISTRESS NOTED. O2 NASAL CANNULA IS INTACT AND FLOWING AT 2 LITERS. IV FLUIDS ARE RUNNING AT ORDERED RATE AND PATIENT VOICES NO PAIN AT THIS TIME. PATIENT NOTIFIED TO CALL NURSE FOR ASSISTANCE AND CALL LIGHT IS WITHIN EASY REACH, WILL CONTINUE TO MONITOR.
[2020-02-09] MEDS ORDERED: INSULIN GLARGINE 100 UNITS/ML VIAL SQ SCH (21:00)
[2020-02-09] MEDS: LISINOPRIL 10 MG TAB PO SCH (21:53)
[2020-02-09] MEDS: ATORVASTATIN 10 MG TAB PO SCH (21:53)
[2020-02-10 00:08] VITALS: BP 127/68
[2020-02-10 04:00] VITALS: BP 138/71
--- NOTE | 2020-02-10 07:00 | NUR ---
RECEIVED SHIFT CHANGE REPORT FROM SALES AND MARKETING INTERN RN. PT DENIES NEEDS AT THIS TIME.
[2020-02-10 07:51] VITALS: BP 125/68
[2020-02-10 08:05] VITALS: BP 125/68
[2020-02-10] MEDS: ESCITALOPRAM OXALATE 10 MG TAB PO SCH ×2 (08:47)
[2020-02-10] MEDS: GUAIFENESIN 600MG/DEXTROMETHORPHAN 30MG TABSR PO SCH ×2 (08:47→16:38)
[2020-02-10] MEDS: PIOGLITAZONE HCL 15 MG TAB PO SCH (08:47)
[2020-02-10] MEDS: DEXAMETHASONE SOD PHOS INJ 4 MG/ML VIAL IV SCH (08:47)
[2020-02-10] MEDS: ENOXAPARIN SOD INJ 40 MG/0.4 ML SYR SC SCH (08:47)
[2020-02-10] MEDS: INSULIN REGULAR, HUMAN 100 UNIT/1 ML 3ML VIAL SQ SCH ×3 (09:53→17:07)
[2020-02-10] MEDS: AZITHROMYCIN 500MG/NS 250 ML 250 ML IV SCH (10:01)
--- NOTE | 2020-02-10 10:16 | NUR ---
INFECTIOUS DISEASE PROGRESS NOTE DR. EDDIE PARISH SUBJECTIVE: improved ROS: + fatigue + muscle aches ALL 14 POINT ROS NEG UNLESS OTHERWISE NOTED PHYSICAL EXAMINATION: VITAL SIGNS: per chart HEENT: awake, alert LYMPHATIC: no submandibular, cervical, or supraclavicular adenopathy. CARDIAC: S1, S2 no s3, s4 LUNGS: diminished, slight rhonchi ABDOMEN: Soft, nontender. There is no rebound or guarding. EXTREMITIES: no edema or clubbing SKIN: Shows no rashes. NEUROLOGICAL: Shows no focal abnormalities. LABORATORY DATA: per chart RADIOLOGY: reviewed IMPRESSION: Viral pneumonia COVID 19 T2DM HTN PLAN: IV ABT as prescribed Lovenox Dexamethasone Oxygen as needed Will need home oxygen arranged prior to discharge To finish 10 days of dexamethasone Linette Haney MSN, EXERCISE INSTRUCTOR, AGACNP-BC Eddie Parish M.D.
[2020-02-10] MEDS: CEFTRIAXONE SOD 1 GM/NS 50 ML 50 ML IV SCH (12:05)
--- NOTE | 2020-02-10 12:19 | NUR ---
ORDERS FOR HOME 02 SATS 85% ON EXERTION CHOICE LETTER OBTAINED FROM PT OVER PHONE FOR [facility] [phone] CALLED AND SPOKE WITH DARLENE AT [facility] FAXED CLINICALS TO [phone]; CONFIRMATION REC'D COPY OF CHOICE LETTER TO PT ALONG WITH MY CARD PORTABLE TANK GIVEN TO NURSE TO GIVE PT ALONG WITH INSTRUCTIONS TO CALL COMPANY WHEN SHE ARRIVES HOME TO ARRANGE DELIVERY OF CONCENTRATOR
--- NOTE | 2020-02-10 13:28 | Progress Note ---
DATE: SUBJECTIVE: The patient is feeling better. She is not complaining of dyspnea or cough. She is eager to go home. OBJECTIVE: VITAL SIGNS: The patient is afebrile. The blood pressure is 125/68, saturation is 98% on 2 L. Pulse is 60. HEENT: Shows no facial swelling or erythema. LYMPHATIC: Shows no submandibular, cervical, or supraclavicular adenopathy. CARDIAC: Reveals regular rate and rhythm. Normal S1, S2. LUNGS: Auscultation of lungs reveals rhonchus breath sounds bilaterally. There is no wheezing. ABDOMEN: Soft, nontender. There is no rebound or guarding. EXTREMITIES: Shows no leg edema or calf tenderness. There is no cyanosis or clubbing. SKIN: Shows no rashes. LABORATORY DATA: White blood cell count is 8.5, hemoglobin is 1.3, and the platelet count is 239. The BUN to creatinine ratio is normal. The other electrolytes are within normal limits. ASSESSMENT: 1. Viral pneumonia and coronavirus disease-19 infection. 2. Diabetes. 3. Hypertension. PLAN: 1. Continue supplemental oxygen. We will arrange for home oxygen. 2. Complete antibiotics. 3. Complete dexamethasone at home. 4. Low-dose anticoagulation at home. Malcolm Guzmán MD Erin/JEREMIAH /[id number]
[2020-02-10 14:31] VITALS: BP 137/56
[2020-02-10] MEDS ORDERED: DECADRON6 MG PO (17:16)
[2020-02-10] MEDS ORDERED: HUMULIN R100 UNIT/2 SQ (17:16)
[2020-02-10] MEDS ORDERED: LEXAPRO10 MG PO (17:16)
[2020-02-10] MEDS ORDERED: ACTOS15 MG PO (17:16)
[2020-02-10] MEDS ORDERED: MUCINEX DM ER1 EACH PO (17:16)
[2020-02-10] MEDS ORDERED: ATIVAN1 MG PO (17:16)
[2020-02-10] MEDS ORDERED: ACETAMINOPHEN325 M1 PO (17:16)
[2020-02-10] MEDS ORDERED: Insulin Glargine SQ (17:16)
[2020-02-10 17:40] VITALS: BP 152/79
--- NOTE | 2020-02-10 18:14 | Discharge Summary ---
CONSULTING PHYSICIANS: Dr. Gabrielle Kang with Infectious Disease and Dr. Malcolm Guzmán with Pulmonology/Critical Care Medicine. CHIEF COMPLAINT: Cough, fever, and shortness of breath. HISTORY OF PRESENT ILLNESS: The patient is a 44-year-old female, who was admitted with complaints of weakness, productive cough, and persistent fever that began 13 days ago. She began having shortness of breath prior to coming to the hospital. Her son tested positive for COVID. The patient later tested positive for COVID during her stay. PAST MEDICAL HISTORY: Type 2 diabetes mellitus, hypertension, hyperlipidemia, depression/anxiety, morbid obesity, renal calculi. PAST SURGICAL HISTORY: Cholecystectomy, lithotripsy multiple times. FAMILY HISTORY: Diabetes mellitus in her father. SOCIAL HISTORY: She quit smoking 12 years ago. Drinks alcohol on occasion. ALLERGIES: NO KNOWN ALLERGIES. ADMITTING DIAGNOSES: 1. Multifocal bilateral pneumonia, present on admission. 2. Hypertension. 3. Hyperlipidemia. 4. Type 2 diabetes mellitus. 5. Super morbid obesity. DISCHARGE DIAGNOSES: 1. Coronavirus disease 2019 pneumonia. 2. Controlled hypertension. 3. Uncontrolled type 2 diabetes mellitus with hyperglycemia. 4. Hyperlipidemia. 5. Super morbid obesity with BMI 54.6. HOSPITAL COURSE: CT of the chest on 02/06 was negative for pulmonary embolism. It did show multifocal bilateral ground-glass and consolidative opacities consistent with multifocal viral/atypical pneumonia. Most recent labs; WBC 8.49 on 02/08, hemoglobin 11.3, hematocrit 36.9, and platelets 239. Fingerstick blood glucose levels 163 and 253. Sodium 137, potassium 4.0, chloride 101, CO2 of 25, anion gap 15, BUN 11, creatinine 0.69, estimated GFR greater than 60, glucose 268, calcium 8.6, total bilirubin 0.4, AST 18, ALT 24, alkaline phosphatase 92, total protein 6.9, albumin 3.7. Today, the patient states that she has productive cough with green phlegm. Mild dizziness during her home oxygen eval when her oxygen was off. She had diarrhea before COVID on a regular basis. She still has some diarrhea, which is green. She is currently on 1 L of oxygen via nasal cannula and will be sent home with oxygen. She is to continue on 1800 calorie ADA diet. Follow up with PCP Dr. Trevino in 1 to 2 weeks. Follow up with Dr. Kang and Dr. Guzmán as directed. We will send the patient home on regular insulin low-dose sliding scale and Lantus insulin 8 units at bedtime. Prescriptions have been signed. It will be provided by the nurse. Activity level as tolerated. The patient was on Rocephin and azithromycin IV during her stay here and she will go home on oral Decadron 6 days in order to complete the total 10 days of Decadron. Dictated by Milan Grewal NP MD MICHELLE Perrin/SHILPIL /[id number]
== END 2020-02-10 18:28 | disposition home or self-care (01) | DRG 177 ==
LOC: ER 12:10 → ERHOLD 12:18 → IMCU 15:57
PROVIDERS: ADMIT Internal Medicine; ATTEND Internal Medicine
PROC: 8E0ZXY6 Isolation (ICD-10-PCS; principal; 2020-02-07)
DX: U07.1 COVID-19 (principal); J12.9 Viral pneumonia, unspecified; J96.90 Respiratory failure, unspecified, unspecified whether with hypoxia or hypercapnia; J15.9 Unspecified bacterial pneumonia; Z68.43 Body mass index [BMI] 50.0-59.9, adult; E11.9 Type 2 diabetes mellitus without complications; I10 Essential (primary) hypertension; E66.01 Morbid (severe) obesity due to excess calories
CPT/HCPCS: 36415; 71045; 71260; 80053; 82550; 82553; 82948; 83036; 84484; 84702; 85025; 93005; 96372; 99284; J0456; J0696; J1100; J1650; J1815; J7050; J7121; Q9967; U0002

== ENCOUNTER → 2020-03-09 | Outpatient (CLI) | payer OTHER ==
[~2020-03-09] MED LIST changes: +ACETAMINOPHEN325 M1 PO; +ACTOS15 MG PO; +ATIVAN1 MG PO; +DECADRON6 MG PO; +HUMULIN R100 UNIT/2 SQ; +Insulin Glargine SQ; +LEXAPRO10 MG PO; +MUCINEX DM ER1 EACH PO
== END ==
LOC: RAD 16:25
PROVIDERS: ATTEND Internal Medicine Critical Care Medicine
DX: J12.9 Viral pneumonia, unspecified (principal)
CPT/HCPCS: 71046

== ENCOUNTER → 2021-07-30 | Outpatient (CLI) | payer OTHER | LOC: RAD 09:57 | PROVIDERS: ATTEND Urology | DX: N20.0 Calculus of kidney (principal) | CPT/HCPCS: 74018 ==

== ENCOUNTER → 2021-09-07 | Day surgery (SDC) | payer OTHER ==
[~2021-09-07] MED LIST changes: +ATROPINE SULFATE 1 MG/ML VIAL ONE; +B&O 60MG R/S 60 MG SUPP PR ONE; +DEXAMETHASONE SOD PHOS INJ 4 MG/ML SDV ONE; +FENTANYL CITRATE/PF 100MCG/2 ML INJ ONE; +INSULIN REGULAR, HUMAN 100 UNIT/1 ML ONE; +IOHEXOL 300 MG/ML 30ML INFUS..BTL ONE; +LIDOCAINE HCL 2% LOCAL INJ 5 ML SDV VIAL INJ ONE; +MIDAZOLAM HCL 2 MG/2 ML VIAL ONE; +NEOSTIGMINE 1 MG/ML 10ML VIAL ONE; +ONDANSETRON HCL INJ 2MG/ML 2ML 2 MG/ML VIAL ONE; +POVIDONE IODINE 0.05% 0.05 % ML PO ONE; +PROPOFOL IV EMULSION 10 MG/ML 20 ML VIAL ONE; +ROCURONIUM BROMIDE 10 MG/ML 5ML VIAL IV ONE; +SEVOFLURANE INHAL SOLN 250 ML PEN BTL ONE; +SODIUM CHLORIDE 0.9% 50ML 100 ML ONE; +SUCCINYLCHOLINE CHLORIDE 20 MG/ML 10ML VIAL ONE
[2021-09-07 10:13] LABS: ANION GAP 13.5 mmol/L (8-16); CALCIUM 8.7 mg/dL (8.4-10.2); CREATININE, SERUM 0.94 mg/dL (0.57-1.11); POTASSIUM 4.5 mmol/L (3.5-5.1)
[2021-09-07 13:45] VITALS: BP 136/72
== END | disposition home or self-care (01) ==
LOC: OR 08:49
PROVIDERS: ATTEND Urology
DX: N20.0 Calculus of kidney (principal); E66.01 Morbid (severe) obesity due to excess calories; E11.9 Type 2 diabetes mellitus without complications; J45.909 Unspecified asthma, uncomplicated; I10 Essential (primary) hypertension; Z20.822 Contact with and (suspected) exposure to COVID-19; Z79.84 Long term (current) use of oral hypoglycemic drugs; Z79.899 Other long term (current) drug therapy
CPT/HCPCS: 36415; 50590; 52332; 80048; 81025; 82948; 93005; C1758; C2617; J0330; J0461; J0690; J1100; J2001; J2250; J2405; J2704; J2710; J3010; Q9967; U0002; J1817

== ENCOUNTER → 2021-10-01 | Outpatient (CLI) | payer OTHER ==
[~2021-10-01] MED LIST changes: -ATROPINE SULFATE 1 MG/ML VIAL ONE; -B&O 60MG R/S 60 MG SUPP PR ONE; -DEXAMETHASONE SOD PHOS INJ 4 MG/ML SDV ONE; -FENTANYL CITRATE/PF 100MCG/2 ML INJ ONE; -INSULIN REGULAR, HUMAN 100 UNIT/1 ML ONE; -IOHEXOL 300 MG/ML 30ML INFUS..BTL ONE; -LIDOCAINE HCL 2% LOCAL INJ 5 ML SDV VIAL INJ ONE; -MIDAZOLAM HCL 2 MG/2 ML VIAL ONE; -NEOSTIGMINE 1 MG/ML 10ML VIAL ONE; -ONDANSETRON HCL INJ 2MG/ML 2ML 2 MG/ML VIAL ONE; -POVIDONE IODINE 0.05% 0.05 % ML PO ONE; -PROPOFOL IV EMULSION 10 MG/ML 20 ML VIAL ONE; -ROCURONIUM BROMIDE 10 MG/ML 5ML VIAL IV ONE; -SEVOFLURANE INHAL SOLN 250 ML PEN BTL ONE; -SODIUM CHLORIDE 0.9% 50ML 100 ML ONE; -SUCCINYLCHOLINE CHLORIDE 20 MG/ML 10ML VIAL ONE
== END ==
LOC: DX 12:53
PROVIDERS: ATTEND Urology
DX: N20.0 Calculus of kidney (principal)
CPT/HCPCS: 74018

== ENCOUNTER → 2021-12-07 | Day surgery (SDC) | payer OTHER ==
[2021-12-03 12:54] LABS: ANION GAP 13.7 mmol/L (8-16); BLOOD UREA NITROGEN 11 mg/dL (7-26); BUN/CREATININE RATIO 13 (6-25); CALCIUM 8.8 mg/dL (8.4-10.2); CARBON DIOXIDE 30 mmol/L (22-29); CHLORIDE 97 mmol/L (98-107); CREATININE, SERUM 0.83 mg/dL (0.57-1.11); GLUCOSE 179 mg/dL (74-118); POTASSIUM 4.7 mmol/L (3.5-5.1); SODIUM 136 mmol/L (136-145)
[~2021-12-07] MED LIST changes: +B&O 60MG R/S 60 MG SUPP PR ONE; +DEXAMETHASONE SOD PHOS INJ 4 MG/ML SDV ONE; +FENTANYL CITRATE/PF 100MCG/2 ML INJ ONE; +IOPAMIDOL 610MG/1ML 300 MG/ML VIAL IV ONE; +KETOROLAC TROMETHAMINE 30 MG/ML VIAL ONE; +LIDOCAINE HCL 2% LOCAL INJ 5 ML SDV VIAL INJ ONE; +MIDAZOLAM HCL 2 MG/2 ML VIAL ONE; +ONDANSETRON HCL INJ 2MG/ML 2ML 2 MG/ML VIAL ONE; +POVIDONE IODINE 0.05% 0.05 % ML PO ONE; +PROPOFOL IV EMULSION 10 MG/ML 20 ML VIAL ONE; +SEVOFLURANE INHAL SOLN 250 ML PEN BTL ONE
[2021-12-07 11:53] VITALS: BP 132/68
== END | disposition home or self-care (01) ==
LOC: OR 08:14
PROVIDERS: ATTEND Urology
DX: N21.0 Calculus in bladder (principal); N13.30 Unspecified hydronephrosis; Z46.6 Encounter for fitting and adjustment of urinary device; G47.33 Obstructive sleep apnea (adult) (pediatric); E11.9 Type 2 diabetes mellitus without complications; I10 Essential (primary) hypertension; E78.5 Hyperlipidemia, unspecified; E66.01 Morbid (severe) obesity due to excess calories; F41.9 Anxiety disorder, unspecified; F32.A Depression, unspecified; Z01.812 Encounter for preprocedural laboratory examination; Z20.822 Contact with and (suspected) exposure to COVID-19; Z79.84 Long term (current) use of oral hypoglycemic drugs; Z79.899 Other long term (current) drug therapy; Z87.891 Personal history of nicotine dependence
CPT/HCPCS: 0223U; 36415 ×2; 52317; 52332; 52351; 74420; 80048; 81025; 82948; 87086; C1758; C2617; J0690; J1100; J1885; J2001; J2250; J2405; J2704; J3010; Q9967

== ENCOUNTER → 2022-04-08 | Day surgery (SDC) | payer OTHER ==
[2022-04-06 16:32] LABS: ANION GAP 12.2 mmol/L (8-16); CALCIUM 9.3 mg/dL (8.4-10.2); CREATININE, SERUM 0.74 mg/dL (0.57-1.11); POTASSIUM 4.2 mmol/L (3.5-5.1)
[~2022-04-08] MED LIST changes: +ALBUTEROL SULFATE HFA 8GM INHALATION AEROSOL INH ONE; -B&O 60MG R/S 60 MG SUPP PR ONE; -KETOROLAC TROMETHAMINE 30 MG/ML VIAL ONE; -POVIDONE IODINE 0.05% 0.05 % ML PO ONE; -SEVOFLURANE INHAL SOLN 250 ML PEN BTL ONE; +VENTOLIN HFA18 GM INH
[2022-04-08 15:47] VITALS: BP 142/66
== END | disposition home or self-care (01) ==
LOC: OR 07:17
PROVIDERS: ATTEND Urology
DX: N21.0 Calculus in bladder (principal); N20.0 Calculus of kidney; I10 Essential (primary) hypertension; E78.5 Hyperlipidemia, unspecified; E11.9 Type 2 diabetes mellitus without complications; R05.9 Cough, unspecified; F32.A Depression, unspecified; F41.9 Anxiety disorder, unspecified; E66.01 Morbid (severe) obesity due to excess calories; Z46.6 Encounter for fitting and adjustment of urinary device; Z01.810 Encounter for preprocedural cardiovascular examination; Z01.812 Encounter for preprocedural laboratory examination; Z79.84 Long term (current) use of oral hypoglycemic drugs; Z79.899 Other long term (current) drug therapy
CPT/HCPCS: 36415 ×2; 52005; 52318; 74420; 80048; 82948; 93005; C1758; J0690; J1100; J2001; J2250; J2405; J2704; J3010; Q9967

== ENCOUNTER → 2022-06-08 | Outpatient (CLI) | payer OTHER ==
[~2022-06-08] MED LIST changes: -ALBUTEROL SULFATE HFA 8GM INHALATION AEROSOL INH ONE; -DEXAMETHASONE SOD PHOS INJ 4 MG/ML SDV ONE; -FENTANYL CITRATE/PF 100MCG/2 ML INJ ONE; -IOPAMIDOL 610MG/1ML 300 MG/ML VIAL IV ONE; -LIDOCAINE HCL 2% LOCAL INJ 5 ML SDV VIAL INJ ONE; -MIDAZOLAM HCL 2 MG/2 ML VIAL ONE; -ONDANSETRON HCL INJ 2MG/ML 2ML 2 MG/ML VIAL ONE; -PROPOFOL IV EMULSION 10 MG/ML 20 ML VIAL ONE
== END ==
LOC: NM 08:06
PROVIDERS: ATTEND Urology
DX: E21.5 Disorder of parathyroid gland, unspecified (principal)
CPT/HCPCS: 78070; A9500; A9502